=== PATIENT | female | born 1965 ===

== ENCOUNTER 2023-06-17 11:29 | Outpatient (CLI) | payer OTHER, SELFPAY ==
--- NOTE | 2023-06-17 12:04 | MM_ITS ---
WS: [id number] BILATERAL 3D TOMOSYNTHESIS DIGITAL SCREENING MAMMOGRAPHY WITH CAD CLINICAL INFORMATION: SCREENING HISTORY: Screening mammogram. No current complaints. COMPARISON: None. TECHNIQUE: Bilateral CC and MLO views. FINDINGS: Scattered fibroglandular densities bilaterally. No suspicious focal mass, asymmetry, calcifications, or architectural distortion. No evidence of malignancy. Surgical clip left breast. IMPRESSION: MM/[place] [id number] BI-RADS: 2-Benign FOLLOW UP: 1 Year Follow-up Recommend return to annual screening mammography.
== END 2023-06-17 11:30 | disposition home or self-care (01) ==
PROVIDERS: PCP Nurse Practitioner Family; Visit Provider Nurse Practitioner Family
DX: Z12.31 Encounter for screening mammogram for malignant neoplasm of breast (principal)
CPT/HCPCS: 77063; 77067

== ENCOUNTER → 2023-07-09 10:47 | Outpatient (BNVA) | payer OTHER, SELFPAY | PROVIDERS: PCP Nurse Practitioner Family; Visit Provider Nurse Practitioner Family | DX: R53.83 Other fatigue (principal); E78.5 Hyperlipidemia, unspecified; I10 Essential (primary) hypertension; W57.XXXA Bitten or stung by nonvenomous insect and other nonvenomous arthropods, initial encounter; F41.9 Anxiety disorder, unspecified; F32.A Depression, unspecified | CPT/HCPCS: 80053; 80061; 83036; 84439; 84443; 84481; 86003; 86008 ==

== ENCOUNTER → 2023-07-23 13:56 | Outpatient (BNVA) | payer OTHER, SELFPAY | PROVIDERS: PCP Nurse Practitioner Family; Visit Provider Nurse Practitioner Family | DX: Z91.018 Allergy to other foods (principal) | CPT/HCPCS: 86003 ==

== ENCOUNTER 2025-03-24 10:30 | Outpatient (CLI) | payer OTHER, SELFPAY ==
--- NOTE | 2025-03-24 10:40 | MM_ITS ---
WS: [id number] BILATERAL SCREENING DIGITAL TOMOSYNTHESIS MAMMOGRAM WITH CAD HISTORY: Z12.31 - Encounter for screening mammogram for malignant ... COMPARISON: 06/17/2023 Bilateral CC and MLO views with tomosynthesis and synthetic mammography submitted. Computer aided detection analyzed. Breast composition: The breasts are heterogeneously dense, which may obscure small masses. No suspicious masses, microcalcifications or architectural distortion. Biopsy clip 12:00 LEFT breast. MM/MM scr tomosynthesis [id number] IMPRESSION: BI-RADS: 2 - Benign FOLLOW UP: 1 Year Follow-up
== END 2025-03-24 10:31 | disposition home or self-care (01) ==
LOC: MOBLMAM 10:41
PROVIDERS: PCP Nurse Practitioner Family; Visit Provider Nurse Practitioner Family
DX: Z12.31 Encounter for screening mammogram for malignant neoplasm of breast (principal); R92.333 Mammographic heterogeneous density, bilateral breasts
CPT/HCPCS: 77063; 77067

== ENCOUNTER → 2025-04-14 11:17 | Outpatient (BNVA) | payer OTHER, SELFPAY | PROVIDERS: PCP Nurse Practitioner Family; Referring Provider Nurse Practitioner Family; Visit Provider Internal Medicine Rheumatology | DX: M05.20 Rheumatoid vasculitis with rheumatoid arthritis of unspecified site (principal); M25.50 Pain in unspecified joint; G57.60 Lesion of plantar nerve, unspecified lower limb; Z79.899 Other long term (current) drug therapy | CPT/HCPCS: 36415; 73130; 73630; 80076; 82306; 82550; 82565; 85025; 85651; 86140; 86431; 86480; 86704; 86803; 87340 ==

== ENCOUNTER → 2025-07-05 10:47 | Outpatient (BNVA) | payer OTHER, SELFPAY | PROVIDERS: PCP Nurse Practitioner Family; Visit Provider Internal Medicine Rheumatology | DX: Z79.899 Other long term (current) drug therapy (principal) | CPT/HCPCS: 80053; 85025 ==

== ENCOUNTER → 2025-07-09 11:41 | Outpatient (BNVA) | payer OTHER, SELFPAY | PROVIDERS: PCP Nurse Practitioner Family; Visit Provider Nurse Practitioner Family | DX: R42 Dizziness and giddiness (principal); R73.03 Prediabetes; D64.9 Anemia, unspecified; E78.5 Hyperlipidemia, unspecified | CPT/HCPCS: 80053; 80061; 82607; 83036; 83550; 84439; 84443; 85025 ==

== ENCOUNTER → 2025-07-28 11:16 | Outpatient (BNVA) | payer OTHER, SELFPAY | PROVIDERS: PCP Nurse Practitioner Family; Visit Provider Podiatrist Foot & Ankle Surgery | DX: M79.671 Pain in right foot (principal); M79.672 Pain in left foot; M84.375A Stress fracture, left foot, initial encounter for fracture; G57.62 Lesion of plantar nerve, left lower limb; L40.50 Arthropathic psoriasis, unspecified; M77.52 Other enthesopathy of left foot and ankle | CPT/HCPCS: 73630 ==

== ENCOUNTER → 2025-07-29 10:41 | Outpatient (BNVA) | payer OTHER, SELFPAY | PROVIDERS: PCP Nurse Practitioner Family; Visit Provider Nurse Practitioner Family | DX: Z91.018 Allergy to other foods (principal) | CPT/HCPCS: 86003; 86008; 86160; 86618; 86666; 86668; 86757 ==

== ENCOUNTER 2025-08-12 10:58 | Day surgery (SDC) | payer OTHER, SELFPAY | END 2025-08-12 11:00 | disposition home or self-care (01) | LOC: GILAB 08-23 07:01 | PROVIDERS: PCP Nurse Practitioner Family; Visit Provider Student in an Organized Health Care Education/Training Program | DX: Z53.9 Procedure and treatment not carried out, unspecified reason (principal) ==

== ENCOUNTER 2025-08-26 14:13 | Outpatient (CLI) | payer OTHER, SELFPAY ==
--- NOTE | 2025-08-26 15:15 | MR_ITS ---
WS: [id number] MRI LEFT FOOT WITHOUT CONTRAST. COMPARISON: Radiograph 07/28/2025 Multiplanar, multisequence imaging is performed without contrast. History: LEFT foot pain between the third and fourth toes. Pain along the plantar surface. Low signal soft tissue in the LEFT third intermetatarsal space is only seen on a few of the sequences. Best seen on the coronal proton density sequence. This is not seen on the T2 fat-saturated sequences. This is highly suspicious for a small Patterson's neuroma measuring 4 x 6 mm. There is also associated bursitis in the third intermetatarsal space. Mild associated perineural fibrosis. There is no marrow edema or fracture. Collateral ligaments appear intact. No injury to the plantar plate. There is some very mild thickening between the second intermetatarsal space but cannot confirm a Patterson's neuroma. There is no associated bursitis. Mild degenerative changes at the first metatarsophalangeal joint. There is a small amount of fluid in the joint with mild joint space narrowing. MR/MR foot LT wo con* [id number] IMPRESSION: 1. 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 2. Bursitis third intermetatarsal space associated with the neuroma. 3. No plantar plate injury. 4. No marrow edema or stress fracture.
== END 2025-08-26 14:14 | disposition home or self-care (01) ==
LOC: RAD 14:15
PROVIDERS: PCP Nurse Practitioner Family; Visit Provider Podiatrist Foot & Ankle Surgery
DX: M84.375A Stress fracture, left foot, initial encounter for fracture (principal); Z01.419 Encounter for gynecological examination (general) (routine) without abnormal findings; M77.52 Other enthesopathy of left foot and ankle; M79.9 Soft tissue disorder, unspecified; R93.6 Abnormal findings on diagnostic imaging of limbs; M19.072 Primary osteoarthritis, left ankle and foot
CPT/HCPCS: 73718; 87624